=== PATIENT | male | born 1940 | race American Indian/Alaskan Native ===

== ENCOUNTER 2016-12-12 13:12 | Day surgery (SDC) | payer MEDICARE ==
[2016-12-09 10:58] VITALS: BMI 16.5
[2016-12-12 13:57] LABS: ADD MANUAL DIFF? NO
[2016-12-12 14:00] LABS: BASO # 0.01 K/mm3 (0.0-2.0); BASO % 0.2 % (0.0-3.0); EOS % 0.2 % (1.5-5.0); GRAN # 4.86 (1.4-6.5); GRAN % 78.3 % (50.0-68.0); HEMATOCRIT 34.2 % (42.0-52.0); LYMPH % 15.8 % (22.0-35.0); MEAN CELL VOLUME 86.1 fL (80.0-105.0); MEAN CORPUSCULAR HEMOGLOBIN 29.5 pg (25.0-35.0); MEAN CORPUSCULAR HGB CONC 34.2 g/dl (31.0-37.0); MEAN PLATELET VOLUME 9.6 fl (7.0-11.0); MONO # 0.3 (0.1-0.6); MONO % 5.5 % (1.0-6.0); PLATELET COUNT 301 10^3/uL (120.0-450.0); RED CELL DISTRIBUTION WIDTH 13.4 % (11.5-14.5); WHITE BLOOD COUNT 6.2 10^3/ul (4.5-11.0)
[2016-12-12] MEDS ORDERED: Iohexol 350 MG/100 ML VIAL ONE (14:06)
[2016-12-12 14:08] LABS: BLOOD UREA NITROGEN 10 mg/dL (7-21); CALCIUM 9.6 mg/dL (8.4-10.5); CARBON DIOXIDE 30 mmol/L (21-33); CHLORIDE 92 mmol/L (95-110); GFR AFRICAN-AMERICAN > 60; GLUCOSE,RANDOM 264 mg/dL (70-110); POTASSIUM 4.3 mmol/L (3.6-5.0); SODIUM 133 mmol/L (132-148)
[2016-12-12 14:13] LABS: INR 1.23 (0.93-1.08); PARTIAL THROMBOPLASTIN TIME 24.9 Seconds (23.7-30.8)
[2016-12-12] MEDS ORDERED: Midazolam 2 MG/2 ML VIAL ONE (14:54)
--- NOTE | 2016-12-12 14:55 | CP.SDSHP ---
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 Work up revealed a pancreatic mass. Previous Surgical History: None - Allergies Allergies: Allergies SEASONAL Allergy (Uncoded 12/09/16 10:58) CONGESTION - Physical Exam General Appearance: Cachectic elderly male Vital Signs: Vital Signs 12/12/16 13:45 Temperature 97.7 F Pulse Rate 71 Respiratory 18 Rate Blood Pressure 103/68 O2 Sat by Pulse 99 Oximetry Mental Status: Alert & Oriented x3 Neuro: WNL Heart: WNL Lungs: WNL - {Optional Preform as Required} Abdomen: Other (tenderness noted in the L upper abdomen,it extends to the back.) - Impression Impression: Pancreatic mass - Date & Time Date: 12/12/16 Time: 14:55 Short Stay Discharge - Short Stay Discharge Admitting Diagnosis/Reason for Visit: PANCREATIC MASS K86.89 Disposition: HOME/ ROUTINE Referrals: Janes Ramos MD [Primary Care Provider] -
[2016-12-12] MEDS ORDERED: Oxycodone/Acetaminophen 5/325 mg Tab PO PRN (15:50)
[2016-12-12] MEDS ORDERED: Sodium Chloride 0.45% 1,000 ML IV SCH (16:00)
--- NOTE | 2016-12-12 16:48 | CT ---
PROCEDURE: CT guided pancreatic biopsy. HISTORY: Pancreatic mass with biliary obstruction. Status post metallic stent placement. PHYSICIAN(S): William Cho MD. TECHNIQUE: The relative risks and indications of the procedure were explained to the patient and consent obtained. The patient was placed supine on the CT scanner and preliminary images through the upper abdomen obtained. Conscious sedation and monitoring were provided throughout the procedure by a nurse. There is a 6 cm mass in the head of the pancreas. A metallic stent is present in the common bile duct.. A subxyphoid approach was selected and the area prepped and draped in the usual sterile fashion. 1% Xylocaine was used to anesthetize the skin and soft tissues. A 17-gauge guiding needle was advanced into the 6 cm pancreatic mass medially. Its position was confirmed with CT. Using coaxial technique, multiple core biopsies were obtained. The postprocedure images show no evidence of significant hemorrhage. IMPRESSION: 1. CT-guided pancreatic biopsy as described above.
[2016-12-12 17:14] VITALS: BP 130/81; PULSE 71; RESP 18; TEMP 97.6; O2SAT 97
--- NOTE | 2016-12-14 14:54 | CT ---
PROCEDURE: CT Abdomen and Pelvis with contrast HISTORY: PANCREATIC MASS COMPARISON: None. TECHNIQUE: Contrast dose: 100 cc of Omnipaque 300 Radiation dose: Total exam DLP = 695 mGy-cm. This CT exam was performed using one or more of the following dose reduction techniques: Automated exposure control, adjustment of the mA and/or kV according to patient size, and/or use of iterative reconstruction technique. FINDINGS: LOWER THORAX: Unremarkable. LIVER: Multiple heterogeneously enhancing hepatic metastases as well as extensive intrahepatic biliary dilatation. GALLBLADDER AND BILE DUCTS: Gallbladder wall nodular enhancement and thickening. Intra and extrahepatic biliary dilatation without internal biliary stent in place. PANCREAS: 3.7 centimeter pancreatic head mass with internal necrosis. Associated extensive pancreatic duct dilatation. SPLEEN: Unremarkable. ADRENALS: Unremarkable. No mass. KIDNEYS AND URETERS: 2 centimeter left upper pole renal cyst.. No hydronephrosis. No solid mass. VASCULATURE: Unremarkable. No aortic aneurysm. BOWEL: Unremarkable. No obstruction. No gross mural thickening. APPENDIX: Normal appendix. PERITONEUM: Unremarkable. No free fluid. No free air. LYMPH NODES: Unremarkable. No enlarged lymph nodes. BLADDER: Unremarkable. REPRODUCTIVE: Unremarkable. BONES: No acute fracture. OTHER FINDINGS: None. 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 Numerous hepatic metastases.
== END 2016-12-12 19:00 | disposition home or self-care (01) ==
LOC: SDS 13:12
PROVIDERS: ATTEND Radiology Vascular & Interventional Radiology
DX: C25.0 Malignant neoplasm of head of pancreas (principal); C78.7 Secondary malignant neoplasm of liver and intrahepatic bile duct; K83.1 Obstruction of bile duct; I10 Essential (primary) hypertension; E11.9 Type 2 diabetes mellitus without complications; H91.92 Unspecified hearing loss, left ear; R63.4 Abnormal weight loss; Z87.891 Personal history of nicotine dependence
CPT/HCPCS: 36415; 48102; 74177; 77012; 80048; 85025; 85610; 85730; 88307; J2250; J2405; J3010; J7030; Q9967